=== PATIENT | male | born 1960 | race Caucasian/White ===

== ENCOUNTER 2022-08-19 07:55 | Observation (INO) ==
--- NOTE | 2022-05-05 15:19 | PAT Medication Instructions ---
Medication Instructions Date of Service May 05, 2022 Home Medications albuterol sulfate 90 mcg/actuation aerosol inhaler 90 mcg inhalation Q4 PRN cough atorvastatin 40 mg tablet 40 mg PO QPM levothyroxine 50 mcg tablet 50 mcg PO QAM losartan 50 mg tablet 50 mg PO QAM metoprolol tartrate 25 mg tablet 12.5 mg PO BID multivitamin 1 tab PO QAM DO NOT take the morning of surgery losartan 50 mg tablet 50 mg PO QAM multivitamin 1 tab PO QAM Take morning of surgery With a small sip of water, OTHERWISE NOTHING TO EAT OR DRINK AFTER MIDNIGHT: albuterol sulfate 90 mcg/actuation aerosol inhaler 90 mcg inhalation Q4 PRN cough (use if needed; please bring rescue inhaler with you to hospital day of surgery if possible) levothyroxine 50 mcg tablet 50 mcg PO QAM metoprolol tartrate 25 mg tablet 12.5 mg PO BID Take evening before surgery albuterol sulfate 90 mcg/actuation aerosol inhaler 90 mcg inhalation Q4 PRN cough (if needed) atorvastatin 40 mg tablet 40 mg PO QPM metoprolol tartrate 25 mg tablet 12.5 mg PO BID Other Notes If you have any questions please call us at [phone] or [phone] or [phone] or [phone]
--- NOTE | 2022-08-10 10:34 | Anesthesiology Consultation ---
Date of Service August 10, 2022 Assessment & Plan (1) Encounter for pre-operative examination: Chart Review Chart Review: Acceptable Risk for Surgery and Patient seen in Pre Admission Testing - Pt not Outpatient Joint candidate due to procedure (revision) Per PAT appt on 08/10/22, patient denies any recent travel or large group activities. Pt is vaccinated for Covid. Will leave to surgeon's discretion if preop Covid testing needed. Educated on importance of using Covid precautions one week prior to surgery Teaching & Discussion Pre-Anesthesia Teaching/Discussion Notes: Instructed NPO after midnight before surgery,except medications with 15 cc of water. Medication instructions provided according to the [facility] guidelines. History Surgery Operation Date: 05/29/22 09:00 Proposed Procedures p Right Total Knee Revision - Cayetano Whittington MD Operation Date: 08/19/22 07:15 Proposed Procedures p Right Revision Total Knee Revision - Cayetano Whittington MD Height/Weight Height: 5 ft 6.5 in Weight: 91.2 kg Allergies Allergy/AdvReac Type Severity Reaction Status Date / Time No Known Allergies Allergy Unverified 08/05/22 16:23 Medications Home Medications Medication Instructions Recorded Confirmed Last Taken albuterol sulfate 90 mcg/actuation 90 mcg inhalation Q4 PRN cough 05/05/22 08/05/22 Unknown aerosol inhaler atorvastatin 40 mg tablet 40 mg PO QPM 05/05/22 08/05/22 Unknown levothyroxine 50 mcg tablet 50 mcg PO QAM 05/05/22 08/05/22 Unknown losartan 50 mg tablet 50 mg PO QAM 05/05/22 08/05/22 Unknown metoprolol tartrate 25 mg tablet 12.5 mg PO BID 05/05/22 08/05/22 Unknown multivitamin 1 tab PO QAM 05/05/22 08/05/22 Unknown Past Medical History Medical History Fracture of femur with malunion 1980s- no surgical intervention needed History of cardiac arrhythmia Follows w/ [facility] last visit seen 2020 (no arrhythmia noted in cardio records- only palpitations- on Metoprolol) - next follow up 10/2022 Hx of migraines None since started on metoprolol Hyperlipidemia Hypertension Hypothyroidism Exercise / Class Metabolic Activity II 4-5 Yardwork/Stairs/Walk up hill (one flight of stairs - no chest pain or SOB ) Past Family History Family History Other No family history of adverse response to anesthesia Past Surgical History Surgical History History of bunionectomy History of knee replacement right Hx of colonoscopy Hx of umbilical hernia repair Past Anesthesia History No Hx of Anesthesia Complications and No Family Hx of Anesthesia Complications History of PONV No Hx of Motion Sickness and History of PONV (occasionally ) Social History Smoking Status: Never smoker Do You Dip or Chew Tobacco: No Hx Alcohol Use: Yes alcohol intake frequency: a few times a month Hx Substance Use: No substance use type: does not use Review of Systems Mild snoring - no significant witnessed apnea- no hx of sleep study Patient denies chest pain, shortness of breath, dyspnea on exertion, reflux, cough, wheezing, palpitations. No hx of seizures, stroke, ND. No hx of blood clots or blood transfusions Physical Exam Vital Signs VITALS BP 139/82 P 60 TEMP 97.6 SP02 96% RESP 16 Constitutional no acute distress ENMT Mouth: no TMJ clicking Thyromental Distance: > or= 3.5 Finger Breadths (3.5) Mallampati Class: III Neck + limited neck extension (minimal) Respiratory normal respiratory effort; no respiratory distress Auscultation: lungs clear to auscultation bilaterally; no wheezes Cardiovascular Rate/Rhythm: regular rate and regular rhythm Heart Sounds: no murmur Vessels: no carotid bruit Musculoskeletal Spine: + pain with cervical ROM (mild) Extremities: extremities normal to inspection Psychiatric Orientation: alert Lab Results Anesthesia Preop Results Results Anesthesia Widget: WBC 5.75 K/ul (4.8-10.8) 08/10/22 Hgb 13.9 g/dl (14.0-18.0) L 08/10/22 Hct 40.1 % (42.0-52.0) L 08/10/22 Plt 235 K/uL (130-400) 08/10/22 Na 136 mmol/L (136-145) 08/10/22 K 4.2 mmol/L (3.5-5.1) 08/10/22 Cl 104 mmol/L (98-107) 08/10/22 CO2 28 mmol/L (21-32) 08/10/22 BUN 15 mg/dl (6-23) 08/10/22 Creat 0.85 mg/dl (0.6-1.4) 08/10/22 Glucose Level 104 mg/dl (70-99(Fasting)) H 08/10/22 PT 10.9 Seconds (9.0-12.0) 08/10/22 PTT 31.1 Seconds (21.0-31.0) H 08/10/22 INR 1.0 (0.9-1.1) 08/10/22 Blood Type O Positive 08/10/22 Antibody Screen NEGATIVE 08/10/22 Testing Electrocardiogram Date: 08/10/22 Findings: + SB @ (56bpm ) Otherwise normal EKG per cardio Chest X-Ray Date: 08/10/22 Findings: + NAD COVID-19 Risk Screen Screening Information COVID-19 Screen Date: 08/10/22 Exposure 21 Days Family/Household +COVID Last 21 Days: No Exposure 10 Days Any COVID Exposure Last 10 Days: No Symptoms Last 10 Days Experienced COVID Sx Last 10 Days: No + COVID 0-90 Days COVID + in Last 0-90 Days: No Risk Plan COVID Risk Plan: No Risk Identified Patient Education COVID Preop Screening Education Complete: Yes
[~2022-08-19 07:55] MED LIST: ACETAMINOPHEN 500 MG TAB PO SCH; BUPIVACAINE LIPOSOME/PF 266 MG, BUPIVACAINE/EPINEPHRINE 50 ML, SODIUM CHLORIDE 0.9% 30 ... INFIL SCH; CeleBREX 200 MG CAP PO SCH; FAMOTIDINE 20 MG TAB PO SCH; LR 500ML BOLUS, THEN 15ML/HR IV SCH; LR 60ML/HR IV SCH; METOCLOPRAMIDE HCL 10 MG TABLET PO SCH; Scopolamine 1 MG TDSY TD SCH; TRANEXAMIC ACID 1,000 MG **IV Intra-op IV SCH; ceFAZolin 2000MG 2,000 MG/15 ML SYR IV SCH
--- NOTE | 2022-08-19 08:56 | History & Physical Bridge Note ---
Date of Service August 19, 2022 History & Physical Bridge Note I have examined the patient, reviewed the History & Physical and in the interval since the performance of the History & Physical I have noted the following changes of clinical significance: no changes noted
[2022-08-19] MEDS ORDERED: ONDANSETRON INJ 2 MG/ML 2 ML VIAL IV PRN ×2 (09:27→15:46)
[2022-08-19] MEDS ORDERED: ATROPINE SULFATE 0.1 MG/ML 10ML SYR IV PRN (09:27)
[2022-08-19] MEDS ORDERED: ePHEDrine sulfate 50 MG/ML AMP IV PRN (09:27)
[2022-08-19] MEDS ORDERED: fentaNYL citrate 100 MCG/2 ML VIAL IV PRN (09:27)
[2022-08-19] MEDS ORDERED: fentaNYL citrate 100 MCG/2 ML VIAL ONE (10:05)
[2022-08-19] MEDS ORDERED: MIDAZOLAM HCL 1 MG/ML 2ML VIAL ONE (10:05)
[2022-08-19] MEDS ORDERED: BUPIVACAINE/EPINEPHRINE 0.25% 1:200,000 30 ML VIAL ONE (10:52)
[2022-08-19] MEDS ORDERED: BUPIVACAINE LIPOSOME 1.3% 266 MG/20 ML VIAL ONE (10:52)
[2022-08-19] MEDS ORDERED: SODIUM CHLORIDE 0.9% PF 50 ML VIAL ONE (10:52)
[2022-08-19] MEDS ORDERED: VANCOMYCIN HCL 1000MG/20ML VIAL ONE (10:53)
[2022-08-19] MEDS ORDERED: ePHEDrine sulfate 50 MG/ML SYR ONE (12:08)
[2022-08-19] MEDS ORDERED: PHENYLEPHRINE 100MCG/ML 5ML SYR ONE (12:08)
[2022-08-19] MEDS ORDERED: PROPOFOL IV EMULSION 10 MG/ML 20 ML VIAL IV ONE (12:08)
[2022-08-19] MEDS ORDERED: KETOROLAC 30 MG/ML VIAL ONE (12:08)
[2022-08-19] MEDS ORDERED: LIDOCAINE 2% MPF LOCAL 5 ML VIAL INFIL ONE (12:08)
[2022-08-19] MEDS ORDERED: DEXAMETHASONE SOD INJ 4 MG/ML VIAL ONE (12:08)
--- NOTE | 2022-08-19 14:41 | Operative Report ---
PG Post Operative Report Pre & Post Diagnosis Operation Date: 05/29/22 09:00 <No data on this case meets the specified criteria> Operation Date: 08/19/22 10:40 Pre-Op Diagnosis: Aseptic Loosening of Prosthetic TKR Post-Op Diagnosis: Aseptic Loosening of Prosthetic TKR I identified the patient and participated in the time-out.: Yes Procedure Operation Date: 05/29/22 09:00 <No data on this case meets the specified criteria> Operation Date: 08/19/22 10:40 Actual Procedures p Right Revision Total Knee Arthroplasty(Right) - Cayetano Whittington MD Surgeon Cayetano Whittington MD Cleaner Operator Leonard Canseco PA-C Estimated Blood Loss 200 Findings Consistent with Post-Op Diagnosis Operative findings revealed a grossly loose femoral component. The tibial component was not grossly loose but there is extensive osteolysis and a very large cyst of the anterior lateral tibia. The patella was well fixed with minimal wear. Moderate-sized knee effusion. No signs of infection. Specimens Right knee joint fluid sent for stat Gram stain aerobic anaerobic culture. Right knee synovium sent for frozen section which revealed a 0 polys per high- power field. Anesthesia Type Spinal MAC Complications none Disposition Accompanied Patient To Recovery: No Indications Patient is a 62-year-old gentleman with a long history of right knee and leg problems. He has a history of a fracture as a pediatric patient and then a fracture later on which was treated in traction. Has a history of an open meniscectomy back in the 70s. He underwent a right total knee replacement for degenerative arthritis about 11 years ago. He did well until about 6 months ago when he started palpable pain and discomfort and recurrent effusions. X-rays suggested femoral loosening. He had an infectious work-up which is negative. Today he elected proceed with revision as his symptoms gradually progressed. Description of Procedure Operative implants consist of: 1. Biomet Vanguard III 160 size right 60 revision femoral stem with a 16 x 40 mm stem with a 10 mm distal medial and lateral augments and 5 mm posterior medial and posterior lateral augments. 2. Biomet Vanguard III 160 size 71 tibial tray with a small cruciate wing, 11 x 80 mm stem, 5 mm augments both medially and laterally. 3. 12 mm posterior stabilized polyethylene insert. The patient was taken the operating, identified, placed on the operating table supine position protectors were properly padded and identified by the anesthesia team. A spinal anesthetic and adductor canal Provided in the holding area. A Cheney catheter was placed in sterile fashion. Right thigh turn was then placed in the right lower extremity was then prepped and draped in usual sterile fas ion. The right leg was elevated exsanguinated with use of an Esmarch and tourniquet placed at 300 mmHg. An anterior approach of the right knee was then performed through the previous incision and extending into slightly proximally and distally. Sharp dissection was carried through subcutaneous tissue down the extensor mechanism. A medial parapatellar arthrotomy incision was made. We did send some fluid off for stat Gram stain aerobic and anaerobic culture. We did not get these results during the case. A complete synovectomy of the suprapatellar pouch and medial lateral gutters was then performed. The synovium was sent for frozen section which revealed 0 point polys per high-power field. In light of this we elected proceed with revision surgery. I have mobilized the subcutaneous and deep tissues up. The edges of the implants were defined. I then remove the polyethylene. I then used the ACL sawblade to loosen up the femoral component and then remove this without incident. Was very easily and essentially loose. Tensioned on the tibia. With use of the ACL sawblade and then the stacked osteotome technique the tibial tray was elevated. Did become free from the cement for the most part. This was not grossly loose. There was a very large cyst in the anterior lateral tibia and the anterior cortical rim was fairly thin. Great care was taken throughout the procedure to help protect the patella tendon insertion. I then removed all the cement from the proximal tibia. I then reamed the tibia up to a size 11. The IM guide was left in place and the proximal tibial cut was made to obtain about 2 to 3 mm of bone from below the cement mantle. We prepared the proximal tibia for an 11 mm stem with no offset and a 71 tibial tray. The tray was assembled and placed. I had trouble fitting it down in an due to the extra bone resection we did elect to a place augments medially and laterally which provided good stable fixation on the bone. Attention drawn to the femur. The distal femur was then with the canal initiated and then reamed up to a 16. This was left in place and the distal femoral cut was made at 5 degrees take an additional 5 mm of bone off both akash es. The femur was sized to a size 60. The AP cutting block was placed in appropriate rotation and the anterior cut, anterior chamfer, posterior cut, posterior chamfer cuts were made. The implant was assembled and the box guide was placed and the box cut was made. The trial implant was assembled. We placed this and then trialed the knee. With the 5 mm augments on the tibia 12 mm insert fit nicely in flexion. It was still loose in extension so we placed 10 mm active augments on the distal femur. This provided nice stability in extension and appropriate to gaps in both flexion and extension. We elect to place these implants. We spent quite a bit of time cleaning up the ends of the bone. Once this was complete we irrigated extensively. The tourniquet was then let down for and had a initial tourniquet time of 108 minutes. While the tourniquet was down we packed the wound. We got the implants out and assembled them. This took about 20 minutes. Once this was complete the leg was once again exsanguinated and the tourniquet was inflated 300 mmHg. I irrigated the wound extensively. We then cemented in 2 sequential batches of cement. A double batch Palacos G cement was mixed with 2 g of vancomycin. The we elected to cement the femur due to the very short nature of the fixation with this malunion. We injected the canal and then placed the implant. Once this was placed and all extraneous cement was removed and another a double batch of Palacos G cement was mixed with 2 g of vancomycin. This is injected the tibial canal and then the tibial implant was placed. All extraneous cement once cement was removed. Trial implant was placed. Knee was brought out in full extension till cement hardened. Once the cement hardened we then trialed the knee and would like to place a 12 mm insert with just a standard posterior stabilized insert. We had good stability. I did inject locally with 100 cc of a combination of 50 cc of quarter percent Marcaine with epinephrine, 20 cc of Exparel, 30 cc of normal saline. The tourniquet was then let down for second turn time 25 minutes. Hemostasis reduced electrocautery. Wounds once again irrigated. The extensor mechanism then closed with #1 PDS suture and #1 Vicryl suture in buried interrupted fashion. Extensor mechanism checked found to be intact and the subcutaneous tissues then closed with 2 Dexon suture in buried interrupted fashion skin was closed skin whitley. Leg was then cleaned and dried a sterile dressing was Xeroform, 4 fours, sterile cast padding, Ted bandage were applied. Patient then transferred to the recovery room in stable condition. The patient tolerated procedure well no complications. Leonard Canseco, my physician culture media laboratory assistant, was present for the entire procedure. His assistance was essential and required for appropriate patient positioning, prepping and draping, surgical exposure, performing the technical details of the operation, placement the implants, closure of the wound, and placement of the sterile bandage. I attest to the content of the Intraoperative Record and any orders documented therein. Any exceptions are noted below.
--- NOTE | 2022-08-19 15:24 | Anesthesiology Progress Note ---
Date of Service August 19, 2022 Anesthesia Post Procedure Vital Signs Vital Signs: Temp Pulse Pulse Resp BP Pulse Ox O2 Del Method 08/19/22 15:15 77 17 122/80 97 Room Air 08/19/22 15:05 36 C L 63 14 116/76 93 Room Air 08/19/22 14:55 86 18 132/71 98 Room Air 08/19/22 14:45 80 21 113/77 99 Oxymask 08/19/22 14:35 36.4 C L 94 H 16 117/68 96 Oxymask 08/19/22 08:25 36.4 C L 59 L 16 146/93 H 98 Room Air O2 Flow Rate 08/19/22 15:15 08/19/22 15:05 08/19/22 14:55 08/19/22 14:45 5 08/19/22 14:35 5 08/19/22 08:25 Transfer of Care Handoff Completed per policy Notes Mental Status: alert / awake / arousable and participated in evaluation Patient Amnestic to Procedure: Yes Nausea / Vomiting: adequately controlled Pain: adequately controlled Airway Patency, RR, SpO2: stable & adequate BP & HR: stable & adequate Hydration State: stable & adequate Anesthetic Complications: no major complications apparent and Pt Satisfied with anesthetic care
[2022-08-19] MEDS ORDERED: METOCLOPRAMIDE HCL INJ 5 MG/ML 2 ML VIAL IV PRN (15:46)
[2022-08-19] MEDS ORDERED: ALUMINUM/MAGNESIUM SUSP 30 ML UDC PO PRN (15:46)
[2022-08-19] MEDS ORDERED: oxyCODONE HCL IR 5 MG TAB (IMMEDIATE RELEASE) PO PRN (15:46)
[2022-08-19] MEDS ORDERED: HYDROmorphone INJ 0.5 MG/0.5 ML SYR IV PRN (15:46)
[2022-08-19] MEDS ORDERED: diphenhydrAMINE Capsule 25 MG CAP PO PRN (15:46)
[2022-08-19] MEDS ORDERED: MAGNESIUM HYDROXIDE SUSP 30 ML UDC PO PRN (15:46)
[2022-08-19] MEDS ORDERED: bisacodyL 10 MG SUPP PR PRN (15:46)
[2022-08-19] MEDS ORDERED: NALOXONE HCL 0.4 MG/1 ML VIAL/CARP IV PRN (15:46)
[2022-08-19] MEDS ORDERED: ALBUTEROL HFA 8 GM INHALER INH PRN (15:46)
--- NOTE | 2022-08-19 16:00 | XRay Report ---
XR knee RT 1 or 2V routine CLINICAL HISTORY: Surgical Post Op TECHNIQUE: 2 views of the right knee were obtained. Comparison: Comparison is made to knee radiograph 04/17/2011 FINDINGS: Patient is status post total knee arthroplasty with expected postsurgical changes including soft tiss ue swelling and subcutaneous emphysema. No periarticular lucency or hardware fracture is seen. IMPRESSION: Expected postoperative appearance status post placement of total knee arthroplasty. ACT 112: Negative or not required by law. Electronically signed by: Glen Qureshi M.D. 08/19/2022 3:58 PM
[2022-08-19] MEDS: ASCORBIC ACID 500 MG TAB PO SCH (16:43)
[2022-08-19] MEDS: Scopolamine CHECK PATCH PLACEMENT SCH ×2 (16:43→23:50)
[2022-08-19] MEDS: KETOROLAC 30 MG/ML VIAL IV SCH ×2 (16:43→22:02)
[2022-08-19] MEDS: SODIUM CHLORIDE 0.9% 1000ML 1,000 ML IV SCH (16:44)
--- NOTE | 2022-08-19 18:04 | Progress Notes ---
DATE OF SERVICE: 08/19/2022. SUBJECTIVE: A 62-year-old gentleman, postop from a right knee revision for aseptic loosening. He is doing pretty well. Just starting to get some function back in his toes. No pain at all yet. OBJECTIVE: VITAL SIGNS: Temperature is 36.4. Vital signs are stable. GENERAL: Physical exam shows a pleasant middle-aged male. He is sitting up on his bed, talking to h is and looks comfortable. LUNGS: Clear to auscultation. HEART: Regular rate and rhythm. ABDOMEN: Soft, nontender, nondistended. EXTREMITIES: Grossly neurovascularly intact except as follows. Examination of the right leg reveals the dressing to be clean, dry and intact. Leg is well aligned. He has got brisk refill. He is just able to slightly wiggle his toes. X-RAYS: X-rays of the right knee from recovery room were reviewed. It shows a right revision cement ed total knee arthroplasty. Components looked to be in good position. He has got a femoral malunion , which is chronic. ASSESSMENT: A 62-year-old gentleman, postop from a right knee revision for aseptic loosening, doing pretty well. Pain is controlled. Spinal is just wearing off and just starting to get some function and feeling back in his leg. PLAN: 1. DVT prophylaxis includes thigh-high TEDs, SCDs, and aspirin twice a day. 2. PT/OT, weightbear as tolerated. Right total knee protocol. 3. Pain control, doing okay with current pain regimen. We will likely have to adjust medications as his spinal wears off. 4. IV antibiotics. We will keep him on antibiotics for now until cultures come back. 5. Disposition: He is planning to be discharged to home, likely with some home health once adequate ly recovered. Job ID: [id number]
[2022-08-19] MEDS: METOPROLOL TARTRATE 25 MG TAB PO SCH (20:29)
[2022-08-19] MEDS: TAPENTADOL HCL ER 50 MG TABCR PO SCH (20:29)
[2022-08-19] MEDS: ASPIRIN 81 MG ECTAB PO SCH (20:30)
[2022-08-19] MEDS: DOCUSATE SODIUM/SENNA 50/8.6MG TAB PO SCH (20:30)
[2022-08-19] MEDS: DOCUSATE SODIUM 100 MG CAP PO SCH (20:30)
[2022-08-19] MEDS: ceFAZolin 2000MG 2,000 MG/15 ML SYR IV SCH (20:31)
[2022-08-19] MEDS ORDERED: TRANEXAMIC ACID / 0.7% NACL 1,000 MG/100 ML BAG IV SCH (20:45)
[2022-08-19] MEDS ORDERED: ATORVASTATIN 40 MG TAB PO SCH (21:00)
[2022-08-19] MEDS ORDERED: SENNA 8.6 MG TAB PO SCH (21:00)
[2022-08-19] MEDS: ACETAMINOPHEN 500 MG TAB PO SCH (21:50)
[2022-08-20] MEDS: KETOROLAC 30 MG/ML VIAL IV SCH ×2 (03:10→09:54)
[2022-08-20] MEDS: SODIUM CHLORIDE 0.9% 1000ML 1,000 ML IV SCH (03:18)
[2022-08-20] MEDS: ACETAMINOPHEN 500 MG TAB PO SCH (05:40)
[2022-08-20] MEDS: ceFAZolin 2000MG 2,000 MG/15 ML SYR IV SCH ×2 (05:40→12:45)
[2022-08-20] MEDS ORDERED: LEVOTHYROXINE SODIUM 50 MCG TABLET PO SCH (06:30)
[2022-08-20] MEDS ORDERED: dexAMETHasone 10 MG in SYRINGE 0 ML IV SCH (08:00)
[2022-08-20 08:04] LABS: Hematocrit (blood only) 31.4 % (42.0-52.0); Hemoglobin 10.9 g/dl (14.0-18.0); Mean Corpuscular Hemoglobin 30.5 pg (25.0-34.0); Mean Corpuscular Hgb Conc 34.7 g/dL (32.0-36.0); Mean Platelet Volume 10.6 fL (9.4-12.4); Platelet Count 227 K/uL (130-400); RDW Coefficient of Variation 13.1 % (11.5-14.5); RDW Standard Deviation 42.5 fL (36.4-46.3); Red Blood Count 3.57 M/uL (4.70-6.10); White Blood Count 14.25 K/ul (4.8-10.8)
[2022-08-20] MEDS: Scopolamine CHECK PATCH PLACEMENT SCH (08:24)
[2022-08-20] MEDS: DOCUSATE SODIUM 100 MG CAP PO SCH (08:25)
[2022-08-20] MEDS: DOCUSATE SODIUM/SENNA 50/8.6MG TAB PO SCH (08:25)
[2022-08-20] MEDS: ASPIRIN 81 MG ECTAB PO SCH (08:25)
[2022-08-20] MEDS: ASCORBIC ACID 500 MG TAB PO SCH (08:25)
[2022-08-20 08:30] LABS: BUN Creatinine Ratio 17.6 (10-20); Calcium 8.5 mg/dl (8.5-10.1); Est GFR (African American) 106.7 ml/min; Est GFR (Non-African American) 92.1 ml/min; Potassium 4.1 mmol/L (3.5-5.1)
[2022-08-20] MEDS: METOPROLOL TARTRATE 25 MG TAB PO SCH (08:37)
[2022-08-20] MEDS: TAPENTADOL HCL ER 50 MG TABCR PO SCH (08:38)
[2022-08-20] MEDS ORDERED: LOSARTAN POTASSIUM 50 MG TAB PO SCH (09:00)
[2022-08-20] MEDS ORDERED: MULTIVITAMIN TAB PO SCH ×2 (09:00)
[2022-08-20] MEDS ORDERED: TAMSULOSIN HCL 0.4 MG CAP PO SCH (09:00)
--- NOTE | 2022-08-20 13:44 | Progress Notes ---
DATE OF SERVICE: 08/20/2022 SUBJECTIVE: A 62-year-old gentleman postop day 1 from right revision knee arthroplasty for aseptic l oosening. He is doing pretty well. Pain is controlled. Had a pretty good night. No chest pain or shortness of breath. Not feeling dizzy or lightheaded. OBJECTIVE: VITAL SIGNS: Temperature is 37.1. Vital signs are stable. PHYSICAL EXAMINATION: GENERAL: Physical exam shows a pleasant middle-aged male. He is sitting up on his bed and looks com fortable. LUNGS: Clear to auscultation. HEART: Regular rate and rhythm. ABDOMEN: Soft, nontender, and nondistended. EXTREMITIES: Grossly neurovascularly intact except as follows. Examination of the right leg reveals the dressing to be in place. Just a little bit of bloody draina ge. He can dorsiflex and plantarflex his foot appropriately. He can do a good straight leg raise. LABORATORY DATA: Hemoglobin 10.9. Hematocrit 31.4. White cell count 14.25. Electrolytes are stabl e. Culture results showed no growth to date. ASSESSMENT: A 62-year-old gentleman postop day 1 from right revision arthroplasty, doing quite well. Pain is controlled. He is neurologically intact. Cultures have been no growth. Gram stain showed some bacteria, but we have had several recent gram stains positive. We will continue to follow this until cultures are final. PLAN: 1. DVT prophylaxis to include thigh-high TEDs, SCDs, and aspirin twice a day. 2. PT, OT, and weightbear as tolerated. Right total knee protocol. 3. Pain control, doing okay with current pain regimen. 4. Disposition: We will plan to discharge him home with some home health once adequately recovered and medically stable. Job ID: [id number]
== END 2022-08-20 13:30 | disposition home health service (06) ==
LOC: ASU 07:55 → 3E 14:37 → INTOOBSV 14:37